=== PATIENT | male | born 1975 | race Hispanic/Latino ===

== ENCOUNTER 2024-07-14 06:08 | Day surgery (SDC) | payer BC ==
[~2024-07-14] VITALS: Ht 185.4 cm; Wt 111.1 kg
[2024-07-14] VITALS (10 sets, daily range): BP systolic 85–133; BP diastolic 41–79; PULSE 67–75; RESP 15–18; TEMP 97.3–207.9
[2024-07-14] MEDS: 0.9%NACL 1000ML 1,000 ML IV ONE (07:34)
[2024-07-14] MEDS ORDERED: SACU1TAB7 PO (07:46)
[2024-07-14] MEDS ORDERED: GABA-529 PO (07:46)
[2024-07-14] MEDS ORDERED: ROSU40TA88 PO (07:46)
[2024-07-14] MEDS ORDERED: TORS20TA4 PO (07:46)
[2024-07-14] MEDS ORDERED: FINE10TA PO (07:46)
[2024-07-14] MEDS ORDERED: SODI10PO2 PO (07:46)
[2024-07-14] MEDS ORDERED: CARV25TA PO (07:46)
[2024-07-14] MEDS ORDERED: DOCU100C33 PO (07:46)
[2024-07-14] MEDS ORDERED: EMPA25TA PO (07:46)
[2024-07-14] MEDS ORDERED: AMIO100T4 PO (07:46)
[2024-07-14] MEDS ORDERED: AMLO-257 PO (07:46)
[2024-07-14] MEDS ORDERED: CLOP75TA32 PO (07:46)
[2024-07-14] MEDS ORDERED: PENT400T72 PO (07:46)
[2024-07-14] MEDS ORDERED: SEMA1PEN3 SQ (07:49)
[2024-07-14] MEDS ORDERED: INSU100I35 SQ (07:49)
[2024-07-14] MEDS ORDERED: proPOFol 10 MG/ML 20ML VIAL IV ONE (08:22)
== END 2024-07-14 09:55 | disposition home or self-care (01) ==
LOC: ENDO 06:08 → DAH 06:08 → ENDO 09:55
PROVIDERS: ATTEND Internal Medicine
DX: Z12.11 Encounter for screening for malignant neoplasm of colon (principal); D12.4 Benign neoplasm of descending colon; D12.3 Benign neoplasm of transverse colon; K31.89 Other diseases of stomach and duodenum; K29.50 Unspecified chronic gastritis without bleeding; K63.5 Polyp of colon; I10 Essential (primary) hypertension; E11.9 Type 2 diabetes mellitus without complications; E78.5 Hyperlipidemia, unspecified; Z95.0 Presence of cardiac pacemaker; Z79.82 Long term (current) use of aspirin; Z79.01 Long term (current) use of anticoagulants; Z79.899 Other long term (current) drug therapy
CPT/HCPCS: 45380; 45385; 43239; 82948 ×2; J7030 ×2; J2704; A4620; A4215 ×2; A4223; A4222; A4221; A4663; A4606; J3490